=== PATIENT | male | born 1960 | race Hispanic/Latino ===

== ENCOUNTER 2024-08-04 06:48 | Inpatient (IN) | payer BC ==
[2024-07-30 11:45] LABS: Absolute Eosinophils 0.1 K/uL (0-0.5); Absolute Lymphocytes (CBC) 1.9 K/uL (0.7-4.9); Absolute Monocytes 0.7 K/uL (0.1-1.3); Absolute Neutrophil 3.8 K/uL (1.8-8.0); Basophils % 0.5 % (0-1.3); Eosinophils % 1.8 % (0-4.4); Hematocrit 38.9 % (39.6-49.0); Hemoglobin 13.4 g/dL (13.6-17.9); Lymphocytes % 28.9 % (15.3-44.8); MCH 31.8 pg (27.0-35.0); MCHC 34.4 g/dL (32.0-36.0); MCV 92.6 fL (80-100); MPV 8.4 fL (7.6-11.3); Monocytes % 10.7 % (3.3-12.3); Neutrophils % 58.1 % (41.7-73.7); Nucleated Red Blood Cells % 0.1 % (0-0); Platelets 281 thou/uL (152-406); Red Cell Distribution Width 14.3 % (12.1-15.2)
[2024-07-30 12:05] LABS: Anion Gap 10.5 mEq/L (5.0-15.0); Potassium 3.5 mEq/L (3.5-5.1)
--- NOTE | 2024-07-30 12:40 | RAD REPORT ---
EXAMINATION: TWO VIEW CHEST XR CLINICAL INDICATION: Male, 63 years old. [facility] MA[facility] pre op. Hypertension TECHNIQUE: 2 view radiographs of the chest were performed. COMPARISON: 12/26/2011 FINDINGS: The lungs are well inflated and clear. No pneumothorax or sizable effusion. The heart is normal in si ze. Mediastinal contours are unremarkable. IMPRESSION: No acute or significant abnormalities.
[2024-07-30 13:52] LABS: PT Prothrombin Time 12.7; Protime INR 1.1
[2024-08-04] MEDS ORDERED: NA CHLORIDE 0.9% 500 ML ONE (06:51)
[2024-08-04] MEDS ORDERED: HEPA 1000U/500MLS 2,000 UNIT/1,000 ML BAG IV ONE (06:55)
[2024-08-04] MEDS ORDERED: HEPARIN 10,000 UNIT/10 ML VIAL IV ONE (06:55)
[2024-08-04] MEDS ORDERED: ATROPINE SULF 1 MG/10 ML SYR IV ONE (06:56)
[2024-08-04] MEDS ORDERED: VERAPAMIL HCL 10 MG/4 ML VIAL IV ONE (06:56)
[2024-08-04] MEDS ORDERED: FENTANYL CITR 100 MCG/2 ML ONE (06:56)
[2024-08-04] MEDS ORDERED: MIDAZOLAM HCL 2 MG/2 ML INJ ONE (06:56)
[2024-08-04] MEDS ORDERED: LIDOCAINE 1% 20 ML MDV ONE (06:56)
[2024-08-04] MEDS ORDERED: ASPIRIN 81 MG CHEWABLE TABLET ONE (06:57)
[2024-08-04] MEDS ORDERED: NITROGLYCERIN/D5W 50 MG/250 ML BTL IV ONE (06:57)
[2024-08-04] MEDS ORDERED: HEPARIN 5000 UNIT/ML 1 ML VIAL ONE (06:57)
[2024-08-04] MEDS ORDERED: TICAGRELOR 90 MG TABLET PO ONE (06:57)
[2024-08-04] MEDS ORDERED: CLOPIDOGREL 75 MG TABLET ONE (06:57)
[2024-08-04 14:11] VITALS: BMI 38.7
--- NOTE | 2024-08-04 16:58 | P.HP ---
Certification for Inpatient Patient admitted to: Observation With expected LOS: <2 Midnights Patient will require the following post-hospital care: None Practitioner: I am a practitioner with admitting privileges, knowledge of patient current condition, hospital course, and medical plan of care. Services: Services provided to patient in accordance with Admission requirements found in Title 42 Section 412.3 of the Code of Federal Regulations Patient History Date of Service: 08/04/24 Primary Care Provider: none Reason for admission: hydration, repeat cath History of Present Illness: 63yo M, PMH: CAD s/p PCI ~13yrs ago, HTN, HLD, Obese, CKD2 Underwent coronary angiogram this morning by Dr. Castaneda and was noted to have multivessel coronary artery disease. He was also found to have elevated creatinine of 2.4. Given the cath findings in the renal function, Dr. Tello requested admission to the hospital for IV fluid hydration and he will go back for heart cath tomorrow for stent placement. Overall plan would be for staged PCI x 3. Patient says he has been in his usual state of health, nothing too unusual and no change in medications in a long time. He recently underwent routine stress testing which was reportedly positive for the patient so he underwent elective cath today. He has not seen a PCP for many years, states he does not recall ever being told he has any sort of kidney disease. Denies any recent ibuprofen/NSAID usage, reports normal/adequate hydration, denies any LUTS. Currently without any chest pain, no nausea/vomiting, no abdominal pain, no swelling. Allergies No Known Allergies Allergy (Verified 07/30/24 10:53) Home Medications: Simvastatin [Zocor] 40 mg PO DAILY #30 tablet 12/27/11 Clopidogrel Bisulfate [Clopidogrel] 75 mg PO DAILY #0 tablet 12/28/11 Metoprolol Tartrate [Lopressor*] 50 mg PO BID 12/28/11 Losartan/Hydrochlorothiazide [Losartan-Hctz 50-12.5 mg Tab] 1 tab PO DAILY 08/04/24 - Past Medical/Surgical History Diabetic: No -: HTN -: High cholestrol -: Clostraphobic -: CAD -: 2 stents 2011 - Family History Father -: Heart disease - Social History Smoking Status: Never smoker Alcohol use: Yes CD- Drugs: No Caffeine use: Yes Place of Residence: Home Review of Systems 10-point ROS is otherwise unremarkable Physical Examination - Vital Signs Temperature: 98.1 F Blood Pressure: 131/64 Pulse: 61 Respirations: 16 Pulse Ox (%): 100 - Physical Exam General: Alert, In no apparent distress, Oriented x3 HEENT: EOMI, Sclerae nonicteric Neck: Supple, No LAD Respiratory: Clear to auscultation bilaterally, Normal air movement Cardiovascular: No edema, Regular rate/rhythm Gastrointestinal: Soft and benign, Non-distended, No tenderness Musculoskeletal: No contractures, No tenderness Integumentary: No rashes, No significant lesion Neurological: Normal speech, Normal strength at 5/5 x4 extr, Normal affect Assessment and Plan - Advance Directives Does patient have a Living Will: No Does patient have a Durable POA for Healthcare: No Physician Review Additional Text: Problem list Multivessel acute on chronic CAD, s/p PCI (2011) Hypertension Hyperlipidemia Morbid obesity Briefly discussed with cardiology Admit to telemetry, NS at 75 an hour N.p.o. after midnight Plan for cardiac catheterization tomorrow Review of EMR: baseline creatinine seems to be around 1.51.6 Hold home losartan/hydrochlorothiazide, avoid any other nephrotoxic medications Continue statin, continue metoprolol Cardiology ordered Brilinta and aspirin Repeat chemistry in a.m. to monitor renal function Code: Full Dispo: Home, 24 hours Time Spent Managing Pts Care (In Minutes): 60
[2024-08-04] MEDS: NA CHLORIDE 0.9% 1,000 ML IV SCH (19:51)
[2024-08-04] MEDS: TICAGRELOR 90 MG TABLET PO SCH (20:47)
[2024-08-04] MEDS: METOPROLOL TAR 50 MG TAB PO SCH (20:48)
[2024-08-04] MEDS: ATORVASTATIN 80 MG TAB PO SCH (20:48)
[2024-08-05] MEDS: ASPIRIN 81 MG CHEWABLE TABLET ONE (06:06)
[2024-08-05] MEDS: ASPIRIN 81 MG CHEWABLE TABLET PO SCH (06:37)
[2024-08-05 07:20] LABS: Anion Gap 8.5 mEq/L (5.0-15.0); Magnesium 2.4 mg/dL (1.6-2.4); Potassium 3.5 mEq/L (3.5-5.1)
[2024-08-05] MEDS ORDERED: ASPIRIN 81 MG CHEWABLE TABLET PO SCH (09:00)
[2024-08-05] MEDS: NA CHLORIDE 0.9% 500 ML ONE (10:34)
--- NOTE | 2024-08-05 11:20 | P.PN ---
Date of Service: 08/05/24 Subjective: no events overnight family updated at bedside NPO for left heart cath today vitals stable Physical Exam: GEN: Alert, oriented, NAD CV: Regular rate and rhythm, no edema Pulm: Nonlabored respirations on room air, clear bilaterally ABD: soft, nontender, nondistended Neuro: Normal speech, normal affect Problem List: Multivessel acute on chronic CAD, s/p PCI (2011) IVAN on CKD Hypertension Hyperlipidemia Morbid obesity Admitted to telemetry and started on NS IVF 75ml/hr Cardiology consulted NPO for LHC today monitor overnight Hold home losartan/HCTZ, avoid any other nephrotoxic medications Continue statin, metoprolol, brilinta, asa 81 mg Continue to monitor renal function Creatinine improving repeat BMP in AM after LHC Vitals stable VTE: hold for surgery Code: Full Dispo: Home, 24-48hrs Pending [facility] results and renal function stable post LHC Time Spent Managing Pts Care (In Minutes): 55
[2024-08-05] MEDS ORDERED: LIDOCAINE 1% 20 ML MDV ONE (11:28)
[2024-08-05] MEDS ORDERED: HEPA 1000U/500MLS 2,000 UNIT/1,000 ML BAG IV ONE (11:28)
[2024-08-05] MEDS ORDERED: HEPARIN 10,000 UNIT/10 ML VIAL IV ONE (11:28)
[2024-08-05] MEDS ORDERED: MIDAZOLAM HCL 2 MG/2 ML INJ ONE (11:29)
[2024-08-05] MEDS ORDERED: TICAGRELOR 90 MG TABLET PO ONE (11:29)
[2024-08-05] MEDS ORDERED: FENTANYL CITR 100 MCG/2 ML ONE (11:29)
[2024-08-05] MEDS ORDERED: ASPIRIN 325 MG TAB ONE (11:29)
[2024-08-05] MEDS ORDERED: CLOPIDOGREL 75 MG TABLET ONE (11:29)
[2024-08-05] MEDS ORDERED: HEPARIN 5000 UNIT/ML 1 ML VIAL ONE (11:29)
[2024-08-05] MEDS ORDERED: ATROPINE SULF 1 MG/10 ML SYR IV ONE (11:29)
--- NOTE | 2024-08-05 17:20 | P.CNS ---
Date of Consult: 08/05/24 Primary Care Provider: none Chief Complaint: hydration, repeat cath History of Present Illness: Patient with PMH of CAD, abnormal stress test and coronary angiogram that shown multivessel CAD, he was admitted to hospital for abnormal kidney function and hydration, today he got PCI RCA ISR, denies any cardiac symptoms at this time. Allergies No Known Allergies Allergy (Verified 07/30/24 10:53) Home medications list reviewed: Yes Home Medications: Simvastatin [Zocor] 40 mg PO DAILY #30 tablet 12/27/11 Clopidogrel Bisulfate [Clopidogrel] 75 mg PO DAILY #0 tablet 12/28/11 Metoprolol Tartrate [Lopressor*] 50 mg PO BID 12/28/11 Losartan/Hydrochlorothiazide [Losartan-Hctz 50-12.5 mg Tab] 1 tab PO DAILY 08/04/24 - Past Medical/Surgical History Diabetic: No -: HTN -: High cholestrol -: Clostraphobic -: CAD -: 2 stents 2011 - Family History Father Medical History: Heart disease - Social History Smoking Status: Never smoker Alcohol use: Yes CD- Drugs: No Caffeine use: Yes Place of Residence: Home Review of Systems 10-point ROS is otherwise unremarkable Physical Examination Temp Pulse Resp BP Pulse Ox 97.9 F 61 16 158/75 H 99 08/05/24 16:00 08/05/24 16:00 08/05/24 16:00 08/05/24 16:00 08/05/24 16:00 General: Alert, In no apparent distress HEENT: Atraumatic, PERRLA, Mucous membr. moist/pink, EOMI, Sclerae nonicteric Neck: Supple, 2+ carotid pulse no bruit, No LAD, Without JVD or thyroid abnormality Respiratory: Clear to auscultation bilaterally, Normal air movement Cardiovascular: Regular rate/rhythm, Normal S1 S2 Gastrointestinal: Normal bowel sounds, No tenderness Musculoskeletal: No tenderness Integumentary: No rashes Neurological: Normal gait, Normal speech, Normal tone, Normal affect Lymphatics: No axilla or inguinal lymphadenopathy Laboratory Data (last 24 hrs) 08/05/24 06:32 Sodium 137 Potassium 3.5 BUN 23 H Creatinine 2.13 H Glucose 93 Magnesium 2.4 - Problems (1) CAD (coronary artery disease) Current Visit: Yes Status: Acute Plan: s/p PCI RCA ISR Continue ASA 81 mg daily continue Brilinta 90 mg po BID Outpatient follow up with cardiology for cardiac PET and further intervention. (2) HTN (hypertension) Current Visit: Yes Status: Acute Plan: CONTINUE Metoprolol 50 mg po BID (3) HLD (hyperlipidemia) Current Visit: Yes Status: Acute Plan: Lipitor 80 mg daily lipid panel in 6-8 weeks. (4) IVAN (acute kidney injury) Current Visit: Yes Status: Acute Plan: continue IV hydration overnight kidney function in am
--- NOTE | 2024-08-05 19:12 | OP ---
Date of Procedure: 08/05/2024 Surgeon: Claudio Florez Procedure Performed: PCI of the RCA with Synergy 3.0 x 38 mm drug-eluting stent, this overlapped wit h Synergy 3.0 x 20 mm drug-eluting stent. Indication For Procedure: Unstable angina, abnormal stress test. Complications: None. Estimated Blood Loss: Less than 50 cc. Access: Right radial, closed by TR band. Sedation Time: 40 minutes with 2 of Versed and 50 of fentanyl. Description Of Procedure: After risks, benefits, and alternatives were explained to the patient, the patient agreed to proceed with procedure and signed informed consent. The patient was brought back to the wood and wood products labourer, prepped and draped in usual sterile fashion. Time-out was performed. Sedation was administered. Next, right radial access was obtained using ultrasound-guided micropuncture technique . A JR4 catheter was advanced over a J-wire to the aortic root and heparin was administered. ACT wa s therapeutic. Runthrough wire was passed across the lesion, pre-dilated the lesion with an NC 2.5 m m balloon. Next, we used an NC 3.0 mm balloon that was followed by Hildreth 3.0 cutting balloon. N ext, GuideLiner was used for deep engagement into the RCA. First, we delivered the Synergy 3.0 x 38 mm drug-eluting stent over the proximal RCA that was overlapped with another Synergy 3.0 x 20 mm drug -eluting stent of mid to distal RCA. Both stents were postdilated with a 3.5 mm NC balloon. Final a ngiogram shows PREM-3 flow. Wire was removed. Catheter was removed. Sheath was removed. TR band w as applied. Hemostasis achieved. The patient was moved back to recovery in stable condition. Findings: RCA, there is 99% in-stent restenoses with diffuse 56% disease in the mid RCA followed by mid to distal stent with distal edge 80% stenosis. Status post PCI as above. Assessment And Plan: 1. Significant proximal to mid RCA ISR, status post PCI with Synergy 3.0 x 38 overlapped with Synergy 3.0 x 20 mm drug-eluting stents. 2. Aspirin 81 mg daily for life. 3. Brilinta 180 x1 was given in the wood and wood products labourer, continue Brilinta 90 mg p.o. b.i.d. for 12 months. 4. Outpatient followup for evaluations for further intervention that will be needed on the OM1 and di agonal after cardiac output evaluation. EVANS/MODL Voice ID: [id number] Report ID: [id number]
[2024-08-05 22:06] VITALS: O2SAT 98
[2024-08-06 06:55] LABS: Anion Gap 7.4 mEq/L (5.0-15.0); Magnesium 2.4 mg/dL (1.6-2.4); Potassium 3.4 mEq/L (3.5-5.1)
[2024-08-06] MEDS: ASPIRIN 81 MG CHEWABLE TABLET PO SCH (08:20)
[2024-08-06] MEDS: POTASSIUM 25 MEQ EFFERV TAB PO ONE (08:21)
[2024-08-06 08:23] VITALS: BP 137/70
[2024-08-06 08:30] VITALS: TEMP 97.9
--- NOTE | 2024-08-06 08:52 | P.DS ---
Admission Date: 08/05/24 Discharge Date: 08/06/24 Primary Care Provider: none Disposition: ROUTINE DISCHARGE Discharge Condition: GOOD Reason for Admission: hydration, repeat cath Consultations: Cardiology - Dr. Florez, Dr. Teresa Brief History of Present Illness: 63yo M, PMH: CAD s/p PCI ~13yrs ago, HTN, HLD, Obese, CKD2 Underwent coronary angiogram this morning by Dr. Castaneda and was noted to have multivessel coronary artery disease. He was also found to have elevated creatinine of 2.4. Given the cath findings in the renal function, Dr. Tello requested admission to the hospital for IV fluid hydration and he will go back for heart cath tomorrow for stent placement. Overall plan would be for staged PCI x 3. Patient says he has been in his usual state of health, nothing too unusual and no change in medications in a long time. He recently underwent routine stress testing which was reportedly positive for the patient so he underwent elective cath today. He has not seen a PCP for many years, states he does not recall ever being told he has any sort of kidney disease. Denies any recent ibuprofen/NSAID usage, reports normal/adequate hydration, denies any LUTS. Currently without any chest pain, no nausea/vomiting, no abdominal pain, no swelling. Hospital Course: Problem List: Multivessel acute on chronic CAD, now s/p PCI (08/05) IVAN on CKD, improving Hypertension Hyperlipidemia Morbid obesity Physician discharge instructions: Patient was undergoing planned left heart catheterization on 08/04 morning and was found to have multivessel coronary artery disease. Lab work done at the time revealed elevated creatinine of 2.4 Given his renal function and recent cath, Dr. Teresa recommended patient come to hospital for IV fluid hydration with the overall plan for staged PCI x3 once his renal function had improved. His renal function improved with IV hydration. Given his improvement, Cardiology decided to proceed with left heart catheterization which noted significant RCA re-stenosis status post stenting (full report below). Patient was monitored overnight, feeling better close to his normal self, breathing comfortably on room air, renal function stable, and was deemed stable for discharge. New prescriptions being sent for Brilinta, Aspirin. Will need to continue on aspirin for life and brilinta for 12 months. Discussed importance as to not miss any doses. Follow up with cardiology in 2-4 weeks for cardiac PET and further outpatient evaluation for further interventions that will be needed on the OM1 and diagonal. Renal function continued to improve post heart catheterization. Creatinine on discharge: 1.98 Check lipid panel in 2-3 months Medications: Brilinta 90 mg twice daily for 12 months (Replaces Plavix) Aspirin 81 mg for life Stop Losartan-Hydrochlorothiazide . Follow up with PCP/Cardiology for further recommendations - if/when to restart. Check blood pressure around the same time each day around the same time each day. Keep daily log of blood pressure readings to take to follow up appointments for further adjustments of medications. Follow up: PCP 3-5 days Cardiology Consider referral to Nephrology Please call to schedule / confirm appointments Left heart cath OP report (08/05/24) Findings: RCA, there is 99% in-stent restenoses with diffuse 56% disease in the mid RCA followed by mid to distal stent with distal edge 80% stenosis, Now status post PCI with Synergy 3.0 x 38 overlapped with Synergy 3.0 x 20 mm drug-eluting stents. Physical Exam: GEN: Alert, oriented, NAD CV: Regular rate and rhythm, no edema Pulm: Nonlabored respirations on room air, clear bilaterally ABD: soft, nontender, nondistended Neuro: Normal speech, normal affect Vital Signs/Physical Exam: Temp Pulse Resp BP Pulse Ox 97.9 F 61 18 137/70 97 08/06/24 08:00 08/06/24 08:20 08/06/24 08:00 08/06/24 08:20 08/06/24 08:00 Laboratory Data at Discharge: WBC 6.60 thou/uL (4.3-10.9) 07/30/24 11:14 Hgb 13.4 g/dL (13.6-17.9) L 07/30/24 11:14 Hct 38.9 % (39.6-49.0) L 07/30/24 11:14 Plt Count 281 thou/uL (152-406) 07/30/24 11:14 PT 12.7 07/30/24 11:14 PT Cancelled 07/30/24 11:14 INR 1.10 07/30/24 11:14 INR Cancelled 07/30/24 11:14 APTT 33.3 SECONDS (27.2-37.4) 07/30/24 11:14 Sodium 137 mEq/L (136-145) 08/06/24 05:46 Potassium 3.4 mEq/L (3.5-5.1) L 08/06/24 05:46 BUN 20 mg/dL (7-18) H 08/06/24 05:46 Creatinine 1.98 mg/dL (0.70-1.30) H 08/06/24 05:46 Glucose 87 mg/dL (74-106) 08/06/24 05:46 Magnesium 2.4 mg/dL (1.6-2.4) 08/06/24 05:46 Home Medications: Simvastatin [Zocor] 40 mg PO DAILY #30 tablet 12/27/11 Metoprolol Tartrate [Lopressor*] 50 mg PO BID 12/28/11 Ticagrelor [Brilinta*] 90 mg PO BID 30 Days #60 tab 08/06/24 New Medications: Ticagrelor [Brilinta*] 90 mg PO BID 30 Days #60 tab Physician Discharge Instructions: Physician discharge instructions: Patient was undergoing planned left heart catheterization on 08/04 morning and was found to have multivessel coronary artery disease. Lab work done at the time revealed elevated creatinine of 2.4 Given his renal function and recent cath, Dr. Teresa recommended patient come to hospital for IV fluid hydration with the overall plan for staged PCI x3 once his renal function had improved. His renal function improved with IV hydration. Given his improvement, Cardiology decided to proceed with left heart catheterization which noted significant RCA re-stenosis status post stenting (full report below). Patient was monitored overnight, feeling better close to his normal self, breathing comfortably on room air, renal function stable, and was deemed stable for discharge. New prescriptions being sent for Brilinta, Aspirin. Will need to continue on aspirin for life and brilinta for 12 months. Discussed importance as to not miss any doses. Follow up with cardiology in 2-4 weeks for cardiac PET and further outpatient evaluation for further interventions that will be needed on the OM1 and di agonal. Renal function continued to improve post heart catheterization. Creatinine on discharge: 1.98 Check lipid panel in 2-3 months Medications: Brilinta 90 mg twice daily for 12 months (Replaces Plavix) Aspirin 81 mg for life Stop Losartan-Hydrochlorothiazide . Follow up with PCP/Cardiology for further recommendations - if/when to restart. Check blood pressure around the same time each day around the same time each day. Keep daily log of blood pressure readings to take to follow up appointments for further adjustments of medications. Follow up: PCP 3-5 days Cardiology Consider referral to Nephrology Please call to schedule / confirm appointments Left heart cath OP report (08/05/24) Findings: RCA, there is 99% in-stent restenoses with diffuse 56% disease in the mid RCA followed by mid to distal stent with distal edge 80% stenosis, Now status post PCI with Synergy 3.0 x 38 overlapped with Synergy 3.0 x 20 mm drug-eluting latisha nts. Followup: Alexey Teresa MD [Primary Care Provider] - 1-2 Weeks Time spent managing pt's care (in minutes): 45
--- NOTE | 2024-08-10 13:00 | EKG ---
Test Date: 2024-07-30 Test Time: 11:22:21 Laminating Machine Tender: MAMTA MEASUREMENT RESULTS: Intervals: Rate: 56 CT: 188 QRSD: 96 QT: 428 QTc: 413 [place]: P: 13 CT: 188 QRS: 44 T: 40 INTERPRETIVE STATEMENTS: Sinus bradycardia Otherwise normal ECG Compared to ECG 12/26/2011 07:08:28 Sinus rhythm no longer present Electronically Signed On 08-10-24 12:37:19 CDT by Claudio Florez
== END 2024-08-06 09:45 | disposition home or self-care (01) | DRG 322 ==
LOC: CCL 06:48 → 2ND 12:24 → OBSVTOIN 08-05 13:29
PROVIDERS: ADMIT Hospitalist; ATTEND Hospitalist
PROC: 027035Z Dilation of Coronary Artery, One Artery with Two Drug-eluting Intraluminal Devices, Percutaneous Approach (ICD-10-PCS; principal; 2024-08-05)
PROC: 4A023N7 Measurement of Cardiac Sampling and Pressure, Left Heart, Percutaneous Approach (ICD-10-PCS; 2024-08-05)
PROC: B2111ZZ Fluoroscopy of Multiple Coronary Arteries using Low Osmolar Contrast (ICD-10-PCS; 2024-08-05)
DX: T82.855A Stenosis of coronary artery stent, initial encounter (principal); N17.9 Acute kidney failure, unspecified; I12.9 Hypertensive chronic kidney disease with stage 1 through stage 4 chronic kidney disease, or unspecified chronic kidney disease; N18.2 Chronic kidney disease, stage 2 (mild); E78.2 Mixed hyperlipidemia; E66.01 Morbid (severe) obesity due to excess calories; I25.10 Atherosclerotic heart disease of native coronary artery without angina pectoris; Z95.1 Presence of aortocoronary bypass graft; Z95.5 Presence of coronary angioplasty implant and graft; Z68.38 Body mass index [BMI] 38.0-38.9, adult; Z79.02 Long term (current) use of antithrombotics/antiplatelets; Z79.899 Other long term (current) drug therapy
CPT/HCPCS: 36415; 71046; 76937; 80048; 82947; 83735; 85025; 85610; 85730; 92928; 93005; 93454; 93458; 94760; 99152; C1725; C1893; G0378; G0379; J0461; J1644; J2003; J2250; J3010; J7030; J7040; Q9966

== ENCOUNTER 2024-12-07 10:40 | Day surgery (SDC) | payer BC ==
[2024-12-06 08:47] LABS: Absolute Lymphocytes (CBC) 1.4 K/uL (0.7-4.9); Hematocrit 40.7 % (39.6-49.0); Hemoglobin 13.8 g/dL (13.6-17.9); MCH 30.9 pg (27.0-35.0); MCHC 33.9 g/dL (32.0-36.0); MCV 91.3 fL (80-100); MPV 8.2 fL (7.6-11.3); Nucleated RBC Absolute Count 0.0 (0-0); Nucleated Red Blood Cells % 0.1 % (0-0); RBC Red Blood Cell Count 4.45 M/uL (4.33-5.43); White Blood Count 6.70 thou/uL (4.3-10.9)
[2024-12-06 08:57] LABS: PT Prothrombin Time 14.5 SECONDS (10-13.0); PTT, Activated Partial Thromb 32.2 SECONDS (27.2-37.4); Protime INR 1.29
[2024-12-06 09:00] LABS: Anion Gap 5.8 mEq/L (5.0-15.0); BUN Blood Urea Nitrogen 27.0 mg/dL (7-18); Glucose Level 93.0 mg/dL (74-106); Potassium 3.8 mEq/L (3.5-5.1)
[2024-12-07] MEDS ORDERED: NA CHLORIDE 0.9% 500 ML ONE (11:14)
[2024-12-07] MEDS ORDERED: HEPA 1000U/500MLS 2,000 UNIT/1,000 ML BAG IV ONE (11:38)
[2024-12-07] MEDS ORDERED: HEPARIN 5000 UNIT/ML 1 ML VIAL ONE (11:39)
[2024-12-07] MEDS ORDERED: HEPARIN 10,000 UNIT/10 ML VIAL IV ONE (11:39)
[2024-12-07] MEDS ORDERED: VERAPAMIL HCL 10 MG/4 ML VIAL IV ONE (11:39)
[2024-12-07] MEDS ORDERED: FLUMAZENIL 0.1 MG/ML (5 mL VIAL) IV ONE (11:39)
[2024-12-07] MEDS ORDERED: NALOXONE 0.4 MG/ML VIAL ONE (11:39)
[2024-12-07] MEDS ORDERED: ATROPINE SULF 1 MG/10 ML SYR IV ONE (11:39)
[2024-12-07] MEDS ORDERED: LIDOCAINE 1% 20 ML MDV ONE (11:39)
[2024-12-07] MEDS ORDERED: FENTANYL CITR 100 MCG/2 ML ONE (11:42)
[2024-12-07] MEDS ORDERED: MIDAZOLAM HCL 2 MG/2 ML INJ ONE (11:42)
[2024-12-07 15:48] VITALS: BP 121/56; O2SAT 100
--- NOTE | 2024-12-07 22:41 | OP ---
Date of Procedure: 12/07/2024 Surgeon: LORI BROWER Procedures Performed: 1. Selective coronary angiogram. 2. 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 Indication: Chest pain with known coronary artery disease. Access: Right radial artery 6[place], closed with TR band. Complications: None. Bleeding: Less than 50 mL. Total Sedation Time: 1 hour. Description Of Procedure: After risks, benefits, and alternatives were explained, the patient agreed to procedure and signed informed consent. The patient was brought into cardiac catheterization labo banner, prepped and draped in usual sterile fashion. Then, I accessed right radial artery using pedi atric micropuncture kit, ultrasound guidance, fluoroscopy, and placed 6-[place] Slender sheath and too k a 6-[place] EBU 3.5 guide into the aortic root, engaged left main, took standard views and then took run-through wire into the LAD and diagonal and could not cross the tight spot. There are 2 lesions. I was able to cross the first one, but the second one, the wire would not go through, tried to use microcatheter and changed for Fielder XT wire. I was able to cross the second lesion slightly, but a t that time, the amount of contrast used was about 70 cc which is max for him due to kidney dysfuncti on. At this point, we decided to stop the procedure, removed the wire. Final angiogram showed no co mplications and removed the guide and the sheath and placed TR band with good hemostasis. Findings: 1. Left main is normal. 2. LAD; proximal 50% to 60%, mid 50%. Diagonal 1 branch is a large vessel with 2 tandem lesions rang ing between 90% and 99%, failed attempt PCI. 3. Left circumflex, proximal 40%, widely patent OM stent. 4. RCA was not injected, status is known with no significant disease. Conclusion: Severe diagonal 1 branch disease, status post failed attempt PCI. The procedure was sto pped due to the contrast load. Recommendation: Re-attempt in 4 to 6 weeks. We will probably do rehydration with normal saline and post already turbine mechanic is involved as this is going to be a complex intervention. We will plan to do it in [place]. SR/MODL Voice ID: [id number] Report ID: [id number]
== END 2024-12-07 15:50 | disposition home health service (06) ==
LOC: CCL 10:40
PROVIDERS: ATTEND Internal Medicine
PROC: 02703ZZ Dilation of Coronary Artery, One Artery, Percutaneous Approach (ICD-10-PCS; principal; 2024-12-07)
DX: I25.110 Atherosclerotic heart disease of native coronary artery with unstable angina pectoris (principal); Z53.8 Procedure and treatment not carried out for other reasons; I10 Essential (primary) hypertension; E78.5 Hyperlipidemia, unspecified
CPT/HCPCS: 93005; 85025; 80048; 36415; 85610; 85347; 85730; 93454; 76937; 92920; C1893; Q9966; J1644 ×2; J2003; J2250; J3010; J7040; 99152; 99153; J0461; J2312